=== PATIENT | male | born 1955 | race Caucasian/White ===

== ENCOUNTER 2019-07-08 15:52 | Outpatient (CLI) | payer OTHER, SELFPAY ==
--- NOTE | ~2019-07-08 | XR_ITS ---
[id number] 07/08/2019 16:16 Indication: Neck pain after recent trauma Procedure: 3 views cervical spine Comparison: No prior studies for comparison. Findings: No fracture, subluxation or dislocation. There is straightening of cervical lordosis. There is disc narrowing with endplate hypertrophy at C4-5, C5-6 and C6-7. No prevertebral soft tissue swel ling. Moderate multilevel facet and uncinate hypertrophy. Lung apices are normal. Odontoid process wi thin normal limits. Impression: 1: Moderate cervical spondylosis. Reviewed, dictated and finalized at location B. 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
== END 2019-07-08 15:53 | disposition home or self-care (01) ==
PROVIDERS: PCP Family Medicine; Visit Provider Physician Assistant Medical
DX: S19.9XXA Unspecified injury of neck, initial encounter (principal); X58.XXXA Exposure to other specified factors, initial encounter; M47.892 Other spondylosis, cervical region
CPT/HCPCS: 72040

== ENCOUNTER 2020-04-27 07:43 | Outpatient (CLI) | payer OTHER, SELFPAY ==
--- NOTE | ~2020-04-27 | US_ITS ---
EXAMINATION: US abdomen complete EXAM DATE: 04/27/2020 08:17 INDICATION: R10.9 - Unspecified abdominal pain AB PAIN. TECHNIQUE: Multiple grayscale and Doppler images of the complete abdomen were obtained (by a technolo gist who performed the scan) and subsequently reviewed. There is no prior study for comparison. FINDINGS: The abdominal aorta is normal in caliber. Visualized portion IVC is patent. The pancreatic head a nd body are normal in appearance. The pancreatic tail is not visualized. The liver has normal echogenicity and contour. There are no focal liver lesions identified. There is no evidence of intrahepatic biliary duct dilation. Portal venous flow was seen in the hepatopedal , normal direction and has normal Doppler waveform. Common bile duct measures 4 mm, which is normal. The gallbladder wall is normal in thickness, with ex pected amount of distention. No sonographic evidence of pericholecystic fluid. There is no cholelit hiases. Technologist performing exam reports patient did not demonstrate sonographic Dong's sign. Please note that this sign is less reliable in patients who have received pain medication. Right kidney: There is normal contour and echogenicity. It measures 9.5 x 6.0 x 6.1 centimeters. Th ere is a 6 cm cyst in the superior pole. There is no hydronephrosis. Left kidney: There is normal contour and echogenicity. It measures 10.4 x 6.4 x 5.2 centimeters. T here are no focal renal lesions identified. There is no hydronephrosis. The spleen measures 10.8 centimeters and is morphologically normal. IMPRESSION: 1. Unremarkable complete abdominal ultrasound exam. Reviewed, dictated and finalized at location B. LAYER
== END 2020-04-27 07:44 | disposition home or self-care (01) ==
PROVIDERS: PCP Family Medicine; Visit Provider Nurse Practitioner Family
DX: R10.9 Unspecified abdominal pain (principal)
CPT/HCPCS: 76700

== ENCOUNTER 2022-10-03 12:12 | Outpatient (NON) | payer MEDICARE, OTHER, SELFPAY | END 2022-10-03 12:13 | disposition home or self-care (01) | LOC: ANHLAB 10-04 12:14 | PROVIDERS: PCP Family Medicine; Visit Provider Nurse Practitioner | DX: D22.0 Melanocytic nevi of lip (principal) | CPT/HCPCS: 88305 ==

== ENCOUNTER 2023-09-28 02:56 | Day surgery (SDC) | payer MEDICARE, OTHER, SELFPAY ==
[2023-09-13 11:03] VITALS: BMI 37.3
--- NOTE | 2023-09-21 13:40 | PC.NURSE ---
Spoke with patient regarding medication Eliquis. Pt. verbalizes understanding that the last dose of Eliquis is to be taken on 09/25/2023 and the Endoscopist will instruct them when to restart after the procedure.
--- NOTE | 2023-09-28 08:08 | WPDANESEPPF ---
Anes - Initial Pre Proc Eval Procedure: Operation Date: 09/28/23 11:00 Proposed Procedures p Colonoscopy - Jsoe Soto MD Date/Time: 09/28/23 08:08 Surgeon: Jose Soto MD Pre Op Diagnosis: Personal hx. of colon polyps Patient Data Age: 68 Gender: M Height: 1.83 m Weight: 125 kg Allergies Allergy/AdvReac Type Severity Reaction Status Date / Time adhesive AdvReac Unknown REDNESS, Verified 09/28/23 09:41 ITCHING AT SITE seasonal Allergy Unknown Dry Eye Uncoded 09/28/23 09:41 Home Medications Medication Instructions Recorded Confirmed Type apixaban 5 mg tablet (Eliquis) 5 mg PO BID 06/23/19 09/28/23 History carvedilol 3.125 mg tablet 3.125 mg PO Q12H 06/23/19 09/28/23 History diltiazem HCl 240 mg 240 mg PO DAILY 06/23/19 09/28/23 History capsule,extended release 24 hr magnesium oxide 400 mg (241.3 mg 400 mg PO BID 06/23/19 09/28/23 History magnesium) tablet (MagOx) dofetilide 500 mcg capsule 500 mcg PO Q12H 06/24/19 09/28/23 History lisinopril 5 mg tablet 5 mg PO DAILY 06/24/19 09/28/23 History Bacillus coagulans 10 billion cell 1 cell PO .q.d 09/02/21 09/28/23 History capsule,delayed release (Probiotic (B. coagulans)) Patient hx anesthesia problems: none Family hx anesthesia problems: none Results Review: All pre-operative results and documents have been reviewed as part of the pre-operative evaluation. 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 Family History Family History Mother Hypertension Cerebrovascular accident Family history of diabetes mellitus in first degree relative Grandparent Cerebrovascular accident Father Diabetes mellitus Sibling , myocardial infarction Acute complete quadriplegia Sibling Breast cancer Other Family history of arthritis Family history of stroke Social History Social History Smoking status: Current some day smoker (marijuana) Tobacco type: cigars Second hand tobacco smoke exposure: No Additional smoking assessment comments: occassional cigar Alcohol intake: current Drinks per week: 2 Substance use: current Substance use type: marijuana Do You Feel Safe in your Home?: Yes Lack of Transportation: No Lack of Food: Never True Current Housing: I Have Housing Concerned About Future Housing: No Difficulty Paying Gas/Electric Bills: No Difficulty Paying for Meds: No Currently Unemployed: No Education: Associate Degree Difficulty w/ Childcare or Family Care: No Living arrangements: with family Occupation/Education: retired 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
[2023-09-28 09:45] VITALS: BP 147/95; PULSE 76; RESP 18; TEMP 35.9; O2SAT 96
[2023-09-28] MEDS: LACTATED RINGERS 1,000 ML 150 ML IV CONT (09:52)
--- NOTE | 2023-09-28 10:12 | WPDANESEPPF ---
Anes - Initial Pre Proc Eval Procedure: Operation Date: 09/28/23 11:00 Proposed Procedures p Colonoscopy - Jose Soto MD Date/Time: 09/28/23 10:12 Surgeon: Jose Soto MD Pre Op Diagnosis: Personal hx. of colon polyps Patient Data Age: 68 Gender: M Height: 1.83 m Weight: 128.3 kg Last Vital Signs Temp 96.6 F L 09/28/23 09:45 Pulse 76 09/28/23 09:45 Resp 18 09/28/23 09:45 BP 147/95 H 09/28/23 09:45 Pulse Ox 96 09/28/23 09:45 O2 Del Method Room Air 09/28/23 09:45 Allergies Allergy/AdvReac Type Severity Reaction Status Date / Time adhesive AdvReac Unknown REDNESS, Verified 09/28/23 09:41 ITCHING AT SITE seasonal Allergy Unknown Dry Eye Uncoded 09/28/23 09:41 Home Medications Medication Instructions Recorded Confirmed Type apixaban 5 mg tablet (Eliquis) 5 mg PO BID 06/23/19 09/28/23 History carvedilol 3.125 mg tablet 3.125 mg PO Q12H 06/23/19 09/28/23 History diltiazem HCl 240 mg 240 mg PO DAILY 06/23/19 09/28/23 History capsule,extended release 24 hr magnesium oxide 400 mg (241.3 mg 400 mg PO BID 06/23/19 09/28/23 History magnesium) tablet (MagOx) dofetilide 500 mcg capsule 500 mcg PO Q12H 06/24/19 09/28/23 History lisinopril 5 mg tablet 5 mg PO DAILY 06/24/19 09/28/23 History Bacillus coagulans 10 billion cell 1 cell PO .q.d 09/02/21 09/28/23 History capsule,delayed release (Probiotic (B. coagulans)) Patient hx anesthesia problems: none Family hx anesthesia problems: none Results Review: All pre-operative results and documents have been reviewed as part of the pre-operative evaluation. 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 Family History Family History Mother Hypertension Cerebrovascular accident Family history of diabetes mellitus in first degree relative Grandparent Cerebrovascular accident Father Diabetes mellitus Sibling , myocardial infarction Acute complete quadriplegia Sibling Breast cancer Other Family history of arthritis Family history of stroke Social History Social History Smoking status: Current some day smoker (marijuana) Tobacco type: cigars Second hand tobacco smoke exposure: No Additional smoking assessment comments: occassional cigar Alcohol intake: current Drinks per week: 2 Substance use: current Substance use type: marijuana Do You Feel Safe in your Home?: Yes Lack of Transportation: No Lack of Food: Never True Current Housing: I Have Housing Concerned About Future Housing: No Difficulty Paying Gas/Electric Bills: No Difficulty Paying for Meds: No Currently Unemployed: No Education: Associate Degree Difficulty w/ Childcare or Family Care: No Living arrangements: with family Occupation/Education: retired 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
--- NOTE | 2023-09-28 10:25 | PM.HPGS ---
History of Present Illness History of Present Illness Consent: Risks, benefits, and alternatives have been discussed and questions answered. Patient agrees to proceed with procedure. Chief complaint: Personal hx. of colon polyps Narrative: Gibson Blandon is a 68 year old male with colon polyp 5 years ago Review of Systems Review of Systems: All systems reviewed & are unremarkable except as noted in HPI and below PMFSH Past Medical History Medical History (Updated 09/28/23 @ 08:09 by Mateusz Quiroga, DO) BMI 37.0-37.9, adult BMI 38.0-38.9,adult BMI 39.0-39.9,adult BMI 40.0-44.9, adult Chronic, continuous use of opioids Colon polyp DJD of AC (acromioclavicular) joint Glaucoma Hypertension Hypomagnesemia Mixed hyperlipidemia Other intervertebral disc degeneration, lumbar region Paroxysmal atrial fibrillation Radiculopathy 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 Family History Family History Mother Hypertension Cerebrovascular accident Family history of diabetes mellitus in first degree relative Grandparent Cerebrovascular accident Father Diabetes mellitus Sibling , myocardial infarction Acute complete quadriplegia Sibling Breast cancer Other Family history of arthritis Family history of stroke Social History Social History Smoking status: Current some day smoker (marijuana) Tobacco type: cigars Second hand tobacco smoke exposure: No Additional smoking assessment comments: occassional cigar Alcohol intake: current Drinks per week: 2 Substance use: current Substance use type: marijuana Do You Feel Safe in your Home?: Yes Lack of Transportation: No Lack of Food: Never True Current Housing: I Have Housing Concerned About Future Housing: No Difficulty Paying Gas/Electric Bills: No Difficulty Paying for Meds: No Currently Unemployed: No Education: Associate Degree Difficulty w/ Childcare or Family Care: No Living arrangements: with family Occupation/Education: retired 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[employer] Gender identity (if verbalized by the patient): Male Spiritual care concerns: No Meds Home Medications and Allergies Home Medications Medication Instructions Recorded Confirmed Type apixaban 5 mg tablet (Eliquis) 5 mg PO BID 06/23/19 09/28/23 History carvedilol 3.125 mg tablet 3.125 mg PO Q12H 06/23/19 09/28/23 History diltiazem HCl 240 mg 240 mg PO DAILY 06/23/19 09/28/23 History capsule,extended release 24 hr magnesium oxide 400 mg (241.3 mg 400 mg PO BID 06/23/19 09/28/23 History magnesium) tablet (MagOx) dofetilide 500 mcg capsule 500 mcg PO Q12H 06/24/19 09/28/23 History lisinopril 5 mg tablet 5 mg PO DAILY 06/24/19 09/28/23 History Bacillus coagulans 10 billion cell 1 cell PO .q.d 09/02/21 09/28/23 History capsule,delayed release (Probiotic (B. coagulans)) Allergies Allergy/AdvReac Type Severity Reaction Status Date / Time adhesive AdvReac Unknown REDNESS, Verified 09/28/23 09:41 ITCHING AT SITE seasonal Allergy Unknown Dry Eye Uncoded 09/28/23 09:41 Vital Signs Vital Signs - 24 hr 09/28/23 09:45 Temperature 96.6 F L Pulse Rate 76 Respiratory Rate 18 Blood Pressure 147/95 H Pulse Oximetry 96 Oxygen Delivery Room Air Exam Const: General: comfortable and no acute distress HENMT: Face/Nose/Sinus: Normal nares present Eyes: General: appearance normal, both eyes and all related structures Neck: Neck: no JVD Resp: Auscultation: clear to auscultation bilaterally Cardio: Ra
[2023-09-28 10:48] VITALS: BP 136/106; PULSE 83; RESP 20; O2SAT 92
[2023-09-28 10:58] VITALS: BP 107/65; PULSE 71; RESP 17; O2SAT 93
[2023-09-28 11:08] VITALS: BP 115/68; PULSE 87; RESP 18; O2SAT 95
== END 2023-09-28 11:21 | disposition home or self-care (01) ==
PROVIDERS: PCP Family Medicine; Visit Provider Internal Medicine Gastroenterology
PROC: 0DJD8ZZ Inspection of Lower Intestinal Tract, Via Natural or Artificial Opening Endoscopic (ICD-10-PCS; CPT 45378; principal; 2023-09-28 11:00)
DX: Z12.11 Encounter for screening for malignant neoplasm of colon (principal); D12.0 Benign neoplasm of cecum; D12.2 Benign neoplasm of ascending colon; D12.3 Benign neoplasm of transverse colon; K64.8 Other hemorrhoids; K64.4 Residual hemorrhoidal skin tags; K57.30 Diverticulosis of large intestine without perforation or abscess without bleeding; I10 Essential (primary) hypertension; E78.2 Mixed hyperlipidemia; I48.0 Paroxysmal atrial fibrillation; F12.90 Cannabis use, unspecified, uncomplicated; F17.290 Nicotine dependence, other tobacco product, uncomplicated; E66.9 Obesity, unspecified; Z68.38 Body mass index [BMI] 38.0-38.9, adult; Z79.01 Long term (current) use of anticoagulants; Z98.890 Other specified postprocedural states; Z86.79 Personal history of other diseases of the circulatory system; Z80.3 Family history of malignant neoplasm of breast; Z82.49 Family history of ischemic heart disease and other diseases of the circulatory system
CPT/HCPCS: 45385; 88305; J7120